=== PATIENT | female | born 2000 | race Caucasian/White ===

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

== ENCOUNTER → 2020-03-07 | Outpatient (CLI) | payer SELFPAY | LOC: M LABSMTC 10:34 | PROVIDERS: ATTEND Pediatrics | DX: Z11.59 Encounter for screening for other viral diseases (principal) ==

== ENCOUNTER → 2020-05-24 | Outpatient (REF) | payer OTHER ==
[2020-05-24 17:25] LABS: HCG, SERUM QUALITATIVE POSITIVE (NEGATIVE)
[2020-05-24 17:47] LABS: HCG, SERUM QUANTITATIVE 79457 MIU/ML
== END ==
LOC: M SFHCPLAZ 14:48
DX: Z32.00 Encounter for pregnancy test, result unknown (principal)

== ENCOUNTER → 2020-06-18 | Outpatient (CLI) | payer OTHER ==
--- NOTE | 2020-06-18 10:04 | REP ---
INDICATION: GESTATIONAL DATING. COMPARISON: None. TECHNIQUE: Transabdominal ultrasound of the gravid uterus. FINDINGS: There is an intrauterine gestational sac with a pole. The heart rate is 162 beats per minute. The pole crown-rump length is 3.7 cm corresponding to 10 weeks 4 days gestational age. The ANITA is 01/10/2021. Gestational age by LMP is 10 weeks 5 days with an ANITA of 01/09/2021. There is no subchorionic hematoma. The right left adnexa are unremarkable. There is no free fluid in the pelvis. IMPRESSION: Viable 10 week 4 day intrauterine gestation. <Electronically signed by Saúl Girard > 06/18/20 1000
== END ==
LOC: M RAD 08:20
PROVIDERS: ATTEND Nurse Practitioner Family
DX: Z32.01 Encounter for pregnancy test, result positive (principal); Z3A.10 10 weeks gestation of pregnancy

== ENCOUNTER → 2020-07-08 | Outpatient (CLI) | payer OTHER ==
[2020-07-08 10:35] LABS: BASO # 0.1 10^3/uL (0.0-0.2); BASO % 0.8 % (0.0-1.0); EOS # 0.2 10^3/uL (0.0-0.5); EOS % 2.5 % (0.0-3.0); HEMATOCRIT 36.8 % (36.0-47.0); HEMOGLOBIN 11.7 g/dl (12.0-15.5); LYMPH # 1.6 10^3/uL (1.5-5.0); LYMPH % 26.9 % (24.0-44.0); MEAN CORPUSCULAR HEMOGLOBIN 29.7 pg (27.0-33.0); MEAN CORPUSCULAR HGB CONC 31.8 g/dl (32.0-36.5); MEAN CORPUSCULAR VOLUME 93.4 fl (80.0-96.0); MONO # 0.3 10^3/uL (0.0-0.8); MONO % 5.7 % (0.0-5.0); NEUTROPHILS # 3.8 10^3/uL (1.5-8.5); NEUTROPHILS % 63.8 % (36.0-66.0); PLATELET COUNT, AUTOMATED 305 10^3/uL (150-450); RED BLOOD COUNT 3.94 10^6/uL (4.00-5.40); WHITE BLOOD COUNT 5.9 10^3/uL (4.0-10.0)
[2020-07-08 10:53] LABS: ERYTHROCYTE SEDIMENTATION RATE 6 mm/hr (0-20)
[2020-07-08 11:12] LABS: ALBUMIN 3.6 GM/DL (3.2-5.2); ALT/SGPT 13 U/L (12-78); BILIRUBIN,TOTAL 0.3 MG/DL (0.2-1.0); BLOOD UREA NITROGEN 5 MG/DL (7-18); CALCIUM LEVEL 9.1 MG/DL (8.5-10.1); CARBON DIOXIDE LEVEL 27 MEQ/L (21-32); CHLORIDE LEVEL 108 MEQ/L (98-107); CREATININE FOR GFR 0.69 MG/DL (0.55-1.30); GLOMERULAR FILTRATION RATE > 60.0 (>60); GLUCOSE, FASTING 107 MG/DL (70-100); POTASSIUM SERUM 4.3 MEQ/L (3.5-5.1); SODIUM LEVEL 140 MEQ/L (136-145); THYROID STIMULATING HORMONE 0.533 uIU/ML (0.358-3.740); TOTAL 25(OH) VITAMIN D 28.5 NG/ML (30.0-100.0); TOTAL PROTEIN 6.8 GM/DL (6.4-8.2); VITAMIN B12 LEVEL 590 PG/ML (247-911)
== END ==
LOC: M LAB 09:41
PROVIDERS: ATTEND Registered Nurse
DX: G43.909 Migraine, unspecified, not intractable, without status migrainosus (principal)

== ENCOUNTER → 2020-07-08 | Outpatient (CLI) | payer SELFPAY | LOC: M LABSMTC 11:10 | PROVIDERS: ATTEND Pediatrics | DX: Z20.828 Contact with and (suspected) exposure to other viral communicable diseases (principal) ==

== ENCOUNTER → 2020-08-10 | Outpatient (CLI) | payer OTHER ==
[2020-08-10 09:02] LABS: BASO # 0.1 10^3/uL (0.0-0.2); BASO % 1.1 % (0.0-1.0); EOS # 0.2 10^3/uL (0.0-0.5); EOS % 2.6 % (0.0-3.0); HEMATOCRIT 38.4 % (36.0-47.0); HEMOGLOBIN 12.8 g/dl (12.0-15.5); LYMPH % 31.3 % (24.0-44.0); MEAN CORPUSCULAR HEMOGLOBIN 30.6 pg (27.0-33.0); MEAN CORPUSCULAR HGB CONC 33.3 g/dl (32.0-36.5); MEAN CORPUSCULAR VOLUME 91.9 fl (80.0-96.0); MONO # 0.5 10^3/uL (0.0-0.8); MONO % 8.5 % (0.0-5.0); NEUTROPHILS # 3.5 10^3/uL (1.5-8.5); NEUTROPHILS % 56.3 % (36.0-66.0); PLATELET COUNT, AUTOMATED 307 10^3/uL (150-450); RED BLOOD COUNT 4.18 10^6/uL (4.00-5.40); WHITE BLOOD COUNT 6.2 10^3/uL (4.0-10.0)
[2020-08-10 09:58] LABS: ALBUMIN 4.2 GM/DL (3.2-5.2); ALT/SGPT 21 U/L (12-78); BILIRUBIN,TOTAL 0.5 MG/DL (0.2-1.0); BLOOD UREA NITROGEN 18 MG/DL (7-18); CALCIUM LEVEL 9.5 MG/DL (8.5-10.1); CARBON DIOXIDE LEVEL 25 MEQ/L (21-32); CHLORIDE LEVEL 105 MEQ/L (98-107); CREATININE FOR GFR 0.83 MG/DL (0.55-1.30); FERRITIN 12 NG/ML (8-252); FREE T4 1.16 NG/DL (0.76-1.46); GLOMERULAR FILTRATION RATE > 60.0 (>60); GLUCOSE, FASTING 83 MG/DL (70-100); IRON (FE) 119 UG/DL (50-170); MAGNESIUM LEVEL 2.2 MG/DL (1.8-2.4); PERCENT SATURATION 27.9 % (13.2-45.0); PHOSPHORUS LEVEL 4.1 MG/DL (2.5-4.9); POTASSIUM SERUM 4.2 MEQ/L (3.5-5.1); SODIUM LEVEL 140 MEQ/L (136-145); TOTAL IRON BINDING CAPACITY 427 UG/DL (250-450); TOTAL PROTEIN 7.6 GM/DL (6.4-8.2)
[2020-08-10 11:49] LABS: C REACTIVE PROTEIN QUANTITATIV < 0.30 MG/DL (0.00-0.30); IMMUNOGLOBULIN E 33.6 IU/ML (<100); IMMUNOGLOBULIN G 977 MG/DL (681-1648); IMMUNOGLOBULIN M 94.7 MG/DL (40-230); RHEUMATOID FACTOR QUANT < 10.0 IU/ML (<15.0)
[2020-08-12 10:40] LABS: FOLATE 15.9 NG/ML (>5.4); THYROGLOBULIN ANTIBODY < 15.0 U/ML (<60.0); THYROID PEROXIDASE ANTIBODY 29.4 U/ML (<60.0); TOTAL 25(OH) VITAMIN D 26.1 NG/ML (30.0-100.0); VITAMIN B12 LEVEL 799 PG/ML (247-911)
[2020-08-12 10:43] LABS: CORTISOL AM 24.8 UG/DL (4.3-22.4)
[2020-08-16 14:09] LABS: ADRENOCORTICOTROPHIC HORMONE 19.2 pg/mL (7.2-63.3); ANTINUCLEAR ANTIBODIES DIRECT Negative (Negative); B. HENSELAE IgG (CAT SCRATCH) Negative titer (Neg:<1:320); B. HENSELAE IgM (CAT SCRATCH) Negative titer (Neg:<1:100); B. QUINTANA IgG (CAT SCRATCH) Negative titer (Neg:<1:320); B. QUINTANA IgM (CAT SCRATCH) Negative titer (Neg:<1:100); BABESIOSIS LEVEL IGG <1:10 (Neg:<1:10); BABESIOSIS LEVEL IGM <1:10 (Neg:<1:10); CHLAMYDIA PNEUMONIAE IgG <1:16 (Neg:<1:16); CHLAMYDIA PNEUMONIAE IgM <1:10 (Neg:<1:10); E CHAFFEENSIS IgG TITER Negative (Neg:<1:64); E CHAFFEENSIS IgM TITER Negative (Neg:<1:20); EBV VIRAL CAPSID AG IgG 70.1 U/mL (0.0-17.9); EBV VIRAL CAPSID AG IgM <36.0 U/mL (0.0-35.9); HERPES HUMAN VIRUS #6 IgG HVG <0.90 index (.); HSV TYPE I IgG SPECIFIC <0.91 index (0.00-0.90); HSV TYPE II IgG SPECIFIC <0.91 index (0.00-0.90); HUMAN GRANULCYTIC EHRLIC IgG Negative (Neg:<1:64); HUMAN GRANULCYTIC EHRLIC IgM Negative (Neg:<1:20); IgG P18 AB Present (.); IgG P23 AB Present (.); IgG P28 AB Absent (.); IgG P30 AB Absent (.); IgG P39 AB Present (.); IgG P41 AB Present (.); IgG P45 AB Absent (.); IgG P66 AB Absent (.); IgG P93 AB Present (.); IgM P23 AB Present (.); IgM P39 AB Present (.); IgM P41 AB Absent (.); LYME IgG WB INTERPRETATION Positive (.); LYME IgM WB INTERPRETATION Positive (.); MYCOPLASMA PNEUMONIAE IgG 2100 U/mL (0-99); MYCOPLASMA PNEUMONIAE IgM 952 U/mL (0-769); RMSFIGG1 Negative (Negative); ROCKY MTN SPOTTED FEVER IgM 0.48 index (0.00-0.89); WEST NILE VIRUS ANTIBODY IgG Negative (Negative); WEST NILE VIRUS ANTIBODY IgM Negative (Negative)
[2020-08-16 18:08] LABS: G6PD2 4.14 x10E6/uL (3.77-5.28); VITAMIN B1 LEVEL WHOLE BLOOD 101.1 nmol/L (66.5-200.0); VITAMIN B6,PYRIDOXAL PHOSPHATE 9.4 ug/L (2.0-32.8)
== END ==
LOC: M LAB 08:19
PROVIDERS: ATTEND General Practice
DX: E03.9 Hypothyroidism, unspecified (principal); R68.89 Other general symptoms and signs; D55.0 Anemia due to glucose-6-phosphate dehydrogenase [G6PD] deficiency; E51.9 Thiamine deficiency, unspecified; E53.1 Pyridoxine deficiency; E53.8 Deficiency of other specified B group vitamins; D50.8 Other iron deficiency anemias; Z13.0 Encounter for screening for diseases of the blood and blood-forming organs and certain disorders involving the immune mechanism; D63.0 Anemia in neoplastic disease; E60 Dietary zinc deficiency

== ENCOUNTER → 2020-12-18 | Outpatient (CLI) | payer OTHER ==
[2020-12-18 13:27] LABS: BASO # 0.1 10^3/uL (0.0-0.2); BASO % 1.3 % (0.0-1.0); EOS # 0.1 10^3/uL (0.0-0.5); EOS % 2.1 % (0.0-3.0); HEMATOCRIT 41.9 % (36.0-47.0); HEMOGLOBIN 13.7 g/dl (12.0-15.5); LYMPH # 1.6 10^3/uL (1.5-5.0); LYMPH % 40.4 % (24.0-44.0); MEAN CORPUSCULAR HEMOGLOBIN 30.2 pg (27.0-33.0); MEAN CORPUSCULAR HGB CONC 32.7 g/dl (32.0-36.5); MEAN CORPUSCULAR VOLUME 92.3 fl (80.0-96.0); MONO # 0.3 10^3/uL (0.0-0.8); MONO % 6.5 % (2.0-8.0); NEUTROPHILS # 1.9 10^3/uL (1.5-8.5); NEUTROPHILS % 48.9 % (36.0-66.0); PLATELET COUNT, AUTOMATED 243 10^3/uL (150-450); RED BLOOD COUNT 4.54 10^6/uL (4.00-5.40); WHITE BLOOD COUNT 3.9 10^3/uL (4.0-10.0)
[2020-12-18 13:54] LABS: ALT/SGPT 18 U/L (12-78); BILIRUBIN,TOTAL 0.3 MG/DL (0.2-1.0); BLOOD UREA NITROGEN 12 MG/DL (7-18); CALCIUM LEVEL 9.1 MG/DL (8.5-10.1); CARBON DIOXIDE LEVEL 29 MEQ/L (21-32); CHLORIDE LEVEL 105 MEQ/L (98-107); CREATININE FOR GFR 0.62 MG/DL (0.55-1.30); FERRITIN 24 NG/ML (8-252); GLOMERULAR FILTRATION RATE > 60.0 (>60); GLUCOSE, FASTING 90 MG/DL (70-100); IRON (FE) 113 UG/DL (50-170); SODIUM LEVEL 138 MEQ/L (136-145); TOTAL IRON BINDING CAPACITY 332 UG/DL (250-450); TOTAL PROTEIN 7.5 GM/DL (6.4-8.2)
[2020-12-18 13:59] LABS: TOTAL 25(OH) VITAMIN D 56.7 NG/ML (30.0-100.0)
== END ==
LOC: M LAB 12:00
PROVIDERS: ATTEND General Practice
DX: R68.89 Other general symptoms and signs (principal)

== ENCOUNTER → 2021-01-06 | Outpatient (CLI) | payer OTHER ==
[2021-01-06 15:08] LABS: BASO # 0.1 10^3/uL (0.0-0.2); BASO % 1.2 % (0.0-1.0); EOS # 0.1 10^3/uL (0.0-0.5); EOS % 1.8 % (0.0-3.0); HEMATOCRIT 42.7 % (36.0-47.0); HEMOGLOBIN 14.4 g/dl (12.0-15.5); LYMPH # 1.9 10^3/uL (1.5-5.0); MEAN CORPUSCULAR HGB CONC 33.7 g/dl (32.0-36.5); MONO # 0.5 10^3/uL (0.0-0.8); NEUTROPHILS # 3.4 10^3/uL (1.5-8.5); NEUTROPHILS % 56.8 % (36.0-66.0); PLATELET COUNT, AUTOMATED 315 10^3/uL (150-450); RED BLOOD COUNT 4.64 10^6/uL (4.00-5.40)
[2021-01-06 15:36] LABS: ALBUMIN 4.2 GM/DL (3.2-5.2); ALT/SGPT 20 U/L (12-78); BILIRUBIN,TOTAL 0.2 MG/DL (0.2-1.0); BLOOD UREA NITROGEN 13 MG/DL (7-18); CALCIUM LEVEL 9.4 MG/DL (8.5-10.1); CARBON DIOXIDE LEVEL 27 MEQ/L (21-32); CHLORIDE LEVEL 106 MEQ/L (98-107); CREATININE FOR GFR 0.67 MG/DL (0.55-1.30); GLOMERULAR FILTRATION RATE > 60.0 (>60); GLUCOSE, FASTING 100 MG/DL (70-100); POTASSIUM SERUM 4.2 MEQ/L (3.5-5.1); SODIUM LEVEL 138 MEQ/L (136-145); TOTAL PROTEIN 7.5 GM/DL (6.4-8.2)
== END ==
LOC: M LAB 14:47
PROVIDERS: ATTEND General Practice
DX: R68.89 Other general symptoms and signs (principal)

== ENCOUNTER → 2021-03-14 | Outpatient (CLI) | payer OTHER ==
[2021-03-14 13:50] LABS: BASO # 0.1 10^3/uL (0.0-0.2); BASO % 1.4 % (0.0-1.0); EOS # 0.1 10^3/uL (0.0-0.5); EOS % 2.4 % (0.0-3.0); HEMATOCRIT 43.2 % (36.0-47.0); HEMOGLOBIN 14.8 g/dl (12.0-15.5); LYMPH # 1.9 10^3/uL (1.5-5.0); LYMPH % 32.2 % (24.0-44.0); MEAN CORPUSCULAR HEMOGLOBIN 32.2 pg (27.0-33.0); MEAN CORPUSCULAR HGB CONC 34.3 g/dl (32.0-36.5); MEAN CORPUSCULAR VOLUME 93.9 fl (80.0-96.0); MONO # 0.4 10^3/uL (0.0-0.8); NEUTROPHILS # 3.3 10^3/uL (1.5-8.5); NEUTROPHILS % 56.8 % (36.0-66.0); PLATELET COUNT, AUTOMATED 251 10^3/uL (150-450); WHITE BLOOD COUNT 5.7 10^3/uL (4.0-10.0)
[2021-03-14 14:27] LABS: ALBUMIN 4.1 GM/DL (3.2-5.2); ALT/SGPT 23 U/L (12-78); BILIRUBIN,TOTAL 0.3 MG/DL (0.2-1.0); BLOOD UREA NITROGEN 13 MG/DL (7-18); CALCIUM LEVEL 9.7 MG/DL (8.5-10.1); CARBON DIOXIDE LEVEL 27 MEQ/L (21-32); CHLORIDE LEVEL 105 MEQ/L (98-107); CORTISOL BASELINE 26.5 UG/DL (4.3-22.4); CREATININE FOR GFR 0.64 MG/DL (0.55-1.30); FERRITIN 22 NG/ML (8-252); FREE T3 3.4 PG/ML (2.2-4.0); GLOMERULAR FILTRATION RATE > 60.0 (>60); GLUCOSE, FASTING 86 MG/DL (70-100); IRON (FE) 53 UG/DL (50-170); PERCENT SATURATION 12.9 % (13.2-45.0); POTASSIUM SERUM 4.4 MEQ/L (3.5-5.1); SODIUM LEVEL 137 MEQ/L (136-145); THYROID STIMULATING HORMONE 0.967 uIU/ML (0.358-3.740); TOTAL 25(OH) VITAMIN D 31.5 NG/ML (30.0-100.0); TOTAL IRON BINDING CAPACITY 411 UG/DL (250-450); TOTAL PROTEIN 7.8 GM/DL (6.4-8.2)
[2021-03-14 14:28] LABS: VITAMIN B12 LEVEL 707 PG/ML (247-911)
== END ==
LOC: M LAB 12:33
PROVIDERS: ATTEND Physician Assistant Medical
DX: R68.89 Other general symptoms and signs (principal); E55.9 Vitamin D deficiency, unspecified; E53.1 Pyridoxine deficiency; D50.8 Other iron deficiency anemias; Z13.0 Encounter for screening for diseases of the blood and blood-forming organs and certain disorders involving the immune mechanism; R79.89 Other specified abnormal findings of blood chemistry; E03.9 Hypothyroidism, unspecified; E34.9 Endocrine disorder, unspecified

== ENCOUNTER → 2021-04-23 | Outpatient (CLI) | payer OTHER ==
[2021-04-23 14:41] LABS: BASO % 0.6 % (0.0-1.0); EOS # 0.1 10^3/uL (0.0-0.5); EOS % 1.6 % (0.0-3.0); HEMATOCRIT 43.5 % (36.0-47.0); HEMOGLOBIN 15.1 g/dl (12.0-15.5); LYMPH # 1.9 10^3/uL (1.5-5.0); LYMPH % 31.1 % (24.0-44.0); MEAN CORPUSCULAR HEMOGLOBIN 32.4 pg (27.0-33.0); MEAN CORPUSCULAR HGB CONC 34.7 g/dl (32.0-36.5); MEAN CORPUSCULAR VOLUME 93.3 fl (80.0-96.0); MONO # 0.4 10^3/uL (0.0-0.8); MONO % 7.1 % (2.0-8.0); NEUTROPHILS # 3.7 10^3/uL (1.5-8.5); NEUTROPHILS % 59.4 % (36.0-66.0); PLATELET COUNT, AUTOMATED 262 10^3/uL (150-450); RED BLOOD COUNT 4.66 10^6/uL (4.00-5.40); WHITE BLOOD COUNT 6.2 10^3/uL (4.0-10.0)
[2021-04-23 15:10] LABS: ALBUMIN 4.1 GM/DL (3.2-5.2); ALT/SGPT 16 U/L (12-78); BILIRUBIN,TOTAL 0.3 MG/DL (0.2-1.0); BLOOD UREA NITROGEN 15 MG/DL (7-18); CALCIUM LEVEL 9.7 MG/DL (8.5-10.1); CARBON DIOXIDE LEVEL 27 MEQ/L (21-32); CHLORIDE LEVEL 106 MEQ/L (98-107); CREATININE FOR GFR 0.81 MG/DL (0.55-1.30); GLOMERULAR FILTRATION RATE > 60.0 (>60); GLUCOSE, FASTING 93 MG/DL (70-100); POTASSIUM SERUM 4.4 MEQ/L (3.5-5.1); SODIUM LEVEL 138 MEQ/L (136-145); TOTAL PROTEIN 7.6 GM/DL (6.4-8.2)
== END ==
LOC: M LAB 13:42
PROVIDERS: ATTEND General Practice
DX: R53.83 Other fatigue (principal)

== ENCOUNTER → 2021-06-04 | Outpatient (CLI) | payer OTHER ==
[2021-06-04 13:34] LABS: BASO % 0.8 % (0.0-1.0); EOS # 0.1 10^3/uL (0.0-0.5); EOS % 1.5 % (0.0-3.0); HEMATOCRIT 43.3 % (36.0-47.0); LYMPH # 1.9 10^3/uL (1.5-5.0); MEAN CORPUSCULAR HEMOGLOBIN 32.3 pg (27.0-33.0); MEAN CORPUSCULAR HGB CONC 34.6 g/dl (32.0-36.5); MEAN CORPUSCULAR VOLUME 93.1 fl (80.0-96.0); MONO # 0.4 10^3/uL (0.0-0.8); MONO % 7.9 % (2.0-8.0); NEUTROPHILS # 2.8 10^3/uL (1.5-8.5); NEUTROPHILS % 52.6 % (36.0-66.0); PLATELET COUNT, AUTOMATED 258 10^3/uL (150-450); RED BLOOD COUNT 4.65 10^6/uL (4.00-5.40); WHITE BLOOD COUNT 5.2 10^3/uL (4.0-10.0)
[2021-06-04 14:02] LABS: ALBUMIN 4.4 GM/DL (3.2-5.2); ALT/SGPT 17 U/L (12-78); BILIRUBIN,TOTAL 0.4 MG/DL (0.2-1.0); BLOOD UREA NITROGEN 12 MG/DL (7-18); CALCIUM LEVEL 10.4 MG/DL (8.5-10.1); CARBON DIOXIDE LEVEL 25 MEQ/L (21-32); CHLORIDE LEVEL 104 MEQ/L (98-107); CREATININE FOR GFR 0.76 MG/DL (0.55-1.30); GLOMERULAR FILTRATION RATE > 60.0 (>60); GLUCOSE, FASTING 100 MG/DL (70-100); POTASSIUM SERUM 4.3 MEQ/L (3.5-5.1); SODIUM LEVEL 139 MEQ/L (136-145); TOTAL PROTEIN 7.6 GM/DL (6.4-8.2)
== END ==
LOC: M LAB 12:41
PROVIDERS: ATTEND General Practice
DX: R53.83 Other fatigue (principal)

== ENCOUNTER → 2021-07-30 | Outpatient (CLI) | payer OTHER ==
[2021-07-30 11:58] LABS: BASO % 0.6 % (0.0-1.0); EOS # 0.1 10^3/uL (0.0-0.5); EOS % 2.7 % (0.0-3.0); HEMATOCRIT 44.3 % (36.0-47.0); LYMPH % 38.9 % (24.0-44.0); MEAN CORPUSCULAR HEMOGLOBIN 31.3 pg (27.0-33.0); MEAN CORPUSCULAR HGB CONC 33.9 g/dl (32.0-36.5); MEAN CORPUSCULAR VOLUME 92.5 fl (80.0-96.0); MONO # 0.4 10^3/uL (0.0-0.8); MONO % 7.4 % (2.0-8.0); NEUTROPHILS # 2.6 10^3/uL (1.5-8.5); PLATELET COUNT, AUTOMATED 263 10^3/uL (150-450); RED BLOOD COUNT 4.79 10^6/uL (4.00-5.40); WHITE BLOOD COUNT 5.1 10^3/uL (4.0-10.0)
[2021-07-30 13:35] LABS: ALT/SGPT 19 U/L (12-78); BILIRUBIN,TOTAL 0.3 MG/DL (0.2-1.0); BLOOD UREA NITROGEN 13 MG/DL (7-18); CALCIUM LEVEL 9.6 MG/DL (8.5-10.1); CARBON DIOXIDE LEVEL 28 MEQ/L (21-32); CHLORIDE LEVEL 104 MEQ/L (98-107); CREATININE FOR GFR 0.74 MG/DL (0.55-1.30); GLOMERULAR FILTRATION RATE > 60.0 (>60); GLUCOSE, FASTING 97 MG/DL (70-100); SODIUM LEVEL 137 MEQ/L (136-145); TOTAL PROTEIN 7.9 GM/DL (6.4-8.2)
== END ==
LOC: M LAB 11:20
PROVIDERS: ATTEND General Practice
DX: R53.83 Other fatigue (principal)

== ENCOUNTER → 2021-10-02 | Outpatient (CLI) | payer OTHER ==
[2021-10-02 11:09] LABS: BASO # 0.1 10^3/uL (0.0-0.2); BASO % 1.3 % (0.0-1.0); EOS # 0.1 10^3/uL (0.0-0.5); EOS % 1.9 % (0.0-3.0); HEMATOCRIT 42.2 % (36.0-47.0); HEMOGLOBIN 14.2 g/dl (12.0-15.5); LYMPH % 31.4 % (24.0-44.0); MEAN CORPUSCULAR HGB CONC 33.6 g/dl (32.0-36.5); MONO # 0.5 10^3/uL (0.0-0.8); MONO % 7.6 % (2.0-8.0); NEUTROPHILS # 3.7 10^3/uL (1.5-8.5); NEUTROPHILS % 57.5 % (36.0-66.0); PLATELET COUNT, AUTOMATED 291 10^3/uL (150-450); RED BLOOD COUNT 4.44 10^6/uL (4.00-5.40); WHITE BLOOD COUNT 6.3 10^3/uL (4.0-10.0)
[2021-10-02 12:06] LABS: ALBUMIN 4.1 GM/DL (3.2-5.2); ALT/SGPT 19 U/L (12-78); BILIRUBIN,TOTAL 0.5 MG/DL (0.2-1.0); BLOOD UREA NITROGEN 12 MG/DL (7-18); CALCIUM LEVEL 9.6 MG/DL (8.5-10.1); CARBON DIOXIDE LEVEL 25 MEQ/L (21-32); CHLORIDE LEVEL 103 MEQ/L (98-107); FERRITIN 12 NG/ML (8-252); GLOMERULAR FILTRATION RATE > 60.0 (>60); GLUCOSE, FASTING 82 MG/DL (70-100); IRON (FE) 119 UG/DL (50-170); PERCENT SATURATION 32.1 % (13.2-45.0); POTASSIUM SERUM 4.2 MEQ/L (3.5-5.1); SODIUM LEVEL 136 MEQ/L (136-145); TOTAL 25(OH) VITAMIN D 62.5 NG/ML (30.0-100.0); TOTAL IRON BINDING CAPACITY 371 UG/DL (250-450); TOTAL PROTEIN 7.4 GM/DL (6.4-8.2); VITAMIN B12 LEVEL 482 PG/ML (247-911)
== END ==
LOC: M LAB 10:14
PROVIDERS: ATTEND General Practice
DX: R53.83 Other fatigue (principal); E55.9 Vitamin D deficiency, unspecified; E53.8 Deficiency of other specified B group vitamins; D50.8 Other iron deficiency anemias; Z13.0 Encounter for screening for diseases of the blood and blood-forming organs and certain disorders involving the immune mechanism

== ENCOUNTER 2023-02-02 05:06 | Inpatient (IN) | payer OTHER ==
[~2023-02-02] VITALS: Ht 162.6 cm; Wt 70.0 kg
[2023-02-02] VITALS (7 sets, daily range): BP systolic 128–140; BP diastolic 71–90; O2SAT 98–99
[2023-02-02] MEDS ORDERED: LIDOCAINE 1% MDV 20ML VIAL INFIL PRN (05:15)
[2023-02-02] MEDS ORDERED: CARBOPROST TROMETHAMINE 250 MCG/ML AMP IM PRN (05:15)
[2023-02-02] MEDS ORDERED: OXYTOCIN INJ 10UNITS/ML 1ML VIAL IM PRN (05:15)
[2023-02-02] MEDS ORDERED: TRANEXAMIC ACID INJection 1,000 MG in NS 100 ML IV PRN (05:15)
[2023-02-02] MEDS ORDERED: OXYTOCIN DRIP 30 UNITS in IV 1 EA IV PRN (05:15)
[2023-02-02] MEDS ORDERED: METHYLERGONOVINE MALEATE 0.2MG/ML 1ML VIAL IM PRN (05:15)
[2023-02-02] MEDS ORDERED: OXYTOCIN 30UNITS IN 0.9% NaCl 500ML IV BAG As Ordered ONE (05:29)
[2023-02-02] MEDS ORDERED: HOME MED LIST COMPLETE! XX SCH (05:50)
[2023-02-02 06:00] LABS: HEMATOCRIT 36.9 % (36.0-47.0); HEMOGLOBIN 12.6 g/dl (12.0-15.5); MEAN CORPUSCULAR HEMOGLOBIN 31.1 pg (27.0-33.0); MEAN CORPUSCULAR HGB CONC 34.1 g/dl (32.0-36.5); MEAN CORPUSCULAR VOLUME 91.1 fl (80.0-96.0); PLATELET COUNT, AUTOMATED 245 10^3/uL (150-450); RED BLOOD COUNT 4.05 10^6/uL (4.00-5.40); WHITE BLOOD COUNT 17.4 10^3/uL (4.0-10.0)
[2023-02-02] MEDS ORDERED: ACETAMINOPHEN TAB 650MG DOSE (2X325MG) PO PRN (06:20)
[2023-02-02] MEDS ORDERED: DIBUCAINE 1% OINTMENT 30GM TOP PRN (06:20)
[2023-02-02] MEDS ORDERED: ACETAMINOPHEN 500 MG TAB PO PRN (06:20)
[2023-02-02] MEDS ORDERED: RHOGAM 300MCG (1500IU) INJ IM SCH (06:20)
[2023-02-02] MEDS ORDERED: IBUPROFEN 600MG TAB PO PRN (06:20)
[2023-02-02] MEDS ORDERED: DOCUSATE SODIUM 100MG CAPSULE PO PRN (06:20)
[2023-02-02] MEDS ORDERED: IBUPROFEN 800 MG TAB PO PRN (06:20)
[2023-02-02] MEDS ORDERED: ANUSOL HC CREAM 30GM TOP PRN (06:20)
[2023-02-02 06:58] LABS: HIV 1&2 SCREEN NEGATIVE (NEGATIVE)
[2023-02-02 07:18] LABS: AMPHETAMINES URINE REFLEX NEGATIVE (NEGATIVE); BARBITURATES URINE REFLEX NEGATIVE (NEGATIVE); BENZODIAZEPINES URINE REFLEX NEGATIVE (NEGATIVE); CANNABINOIDS URINE REFLEX NEGATIVE (NEGATIVE); COCAINE METABOLITE URINE REFLE NEGATIVE (NEGATIVE); METHADONE URINE REFLEX NEGATIVE (NEGATIVE); OPIATES URINE REFLEX NEGATIVE (NEGATIVE); PHENCYCLIDINE URINE REFLEX NEGATIVE (NEGATIVE)
[2023-02-02] MEDS: PRENATAL VITAMINS CHEWABLE TABLET PO SCH (08:17)
[2023-02-03] MEDS ORDERED: UNRESOLVED CLARIFICATION ENTRY XX SCH (00:01)
[2023-02-03 06:04] VITALS: BP 113/58; O2SAT 98
[2023-02-03] MEDS: PRENATAL VITAMINS CHEWABLE TABLET PO SCH (07:45)
[2023-02-03] MEDS ORDERED: HOME MED LIST COMPLETE! XX SCH (12:00)
[2023-02-03 18:00] VITALS: BP 123/71; O2SAT 98
[2023-02-04 06:00] VITALS: BP 108/68; O2SAT 99
[2023-02-04] MEDS ORDERED: COLA100C5 PO (07:49)
[2023-02-04] MEDS ORDERED: ACET-683 PO (07:49)
[2023-02-04] MEDS ORDERED: IBUP-1022 PO (07:49)
[2023-02-04] MEDS ORDERED: MEASLES,MUMPS,RUBELLA VACCINE INJ (MMR-II) SC.IMMUN ONE (09:00)
[2023-02-04] MEDS: PRENATAL VITAMINS CHEWABLE TABLET PO SCH (09:03)
== END 2023-02-04 11:45 | disposition home or self-care (01) | DRG 560 ==
LOC: M LDI 05:06 → M OBS 06:51
PROVIDERS: ADMIT Advanced Practice Midwife; ATTEND Advanced Practice Midwife
PROC: 10E0XZZ Delivery of Products of Conception, External Approach (ICD-10-PCS; principal; 2023-02-02)
DX: O70.0 First degree perineal laceration during delivery (principal); O73.0 Retained placenta without hemorrhage; O09.31 Supervision of pregnancy with insufficient antenatal care, first trimester; O09.32 Supervision of pregnancy with insufficient antenatal care, second trimester; O09.33 Supervision of pregnancy with insufficient antenatal care, third trimester

== ENCOUNTER → 2024-08-23 | Outpatient (CLI) | payer OTHER ==
[~2024-08-23] MED LIST: ACET-683 PO; COLA100C5 PO; IBUP-1022 PO
[2024-08-23 13:16] LABS: BASO % 0.7 % (0.0-1.0); EOS # 0.1 10^3/uL (0.0-0.5); EOS % 1.5 % (0.0-3.0); HEMATOCRIT 41.4 % (36.0-47.0); HEMOGLOBIN 14.1 g/dl (12.0-15.5); LYMPH # 1.8 10^3/uL (1.5-5.0); LYMPH % 32.5 % (24.0-44.0); MEAN CORPUSCULAR HEMOGLOBIN 30.7 pg (27.0-33.0); MEAN CORPUSCULAR HGB CONC 34.1 g/dl (32.0-36.5); MEAN CORPUSCULAR VOLUME 90.2 fl (80.0-96.0); MONO # 0.4 10^3/uL (0.0-0.8); NEUTROPHILS # 3.1 10^3/uL (1.5-8.5); NEUTROPHILS % 57.1 % (36.0-66.0); PLATELET COUNT, AUTOMATED 273 10^3/uL (150-450); RED BLOOD COUNT 4.59 10^6/uL (4.00-5.40); WHITE BLOOD COUNT 5.5 10^3/uL (4.0-10.0)
[2024-08-23 13:33] LABS: HEMOGLOBIN A1c 5.1 % (4.0-6.0)
[2024-08-23 13:47] LABS: ALKALINE PHOSPHATASE 67 U/L (35-104); ALT/SGPT 16 U/L (7.0-40); AST/SGOT 12 U/L (<34); BILIRUBIN,TOTAL 0.3 MG/DL (0.3-1.2); BLOOD UREA NITROGEN 14 MG/DL (9-23); CALCIUM LEVEL 9.2 MG/DL (8.5-10.1); CARBON DIOXIDE LEVEL 25 MMOL/L (20-31); CHLORIDE LEVEL 106 MMOL/L (98-107); CHOLESTEROL LEVEL 157 MG/DL (<200); CHOLESTEROL RISK RATIO 2.28 (<5); CREATININE FOR GFR 0.61 MG/DL (0.55-1.30); GLOMERULAR FILTRATION RATE > 60.0 (>60); GLUCOSE, FASTING 87 MG/DL (60-100); HDL CHOLESTEROL 68.6 MG/DL (>40); LDL CHOLESTEROL 74.4 MG/DL (<100); NON-HDL-C 88.4 MG/DL; POTASSIUM SERUM 4.6 MMOL/L (3.5-5.1); SODIUM LEVEL 141 MMOL/L (136-145); TOTAL PROTEIN 7.2 G/DL (5.7-8.2); TRIGLYCERIDES LEVEL 70 MG/DL (<150)
[2024-08-23 13:48] LABS: THYROID STIMULATING HORMONE 1.229 uIU/ML (0.55-4.78)
[2024-08-23 13:49] LABS: FREE T4 1.16 NG/DL (0.89-1.76)
== END ==
LOC: M LAB 10:56
PROVIDERS: ATTEND Registered Nurse
DX: R03.0 Elevated blood-pressure reading, without diagnosis of hypertension (principal)

== ENCOUNTER → 2025-06-12 | Outpatient (CLI) | payer OTHER ==
[~2025-06-12] MED LIST changes: -IBUP-1022 PO; +IBUP600T42 PO
== END ==
LOC: M RAD 12:03
PROVIDERS: ATTEND Registered Nurse
DX: M54.6 Pain in thoracic spine (principal)